=== PATIENT | male | born 1985 | race Caucasian/White ===

== ENCOUNTER 2017-07-21 18:23 | Emergency (ER) | payer OTHER ==
[2017-07-21 19:01] VITALS: BP 120/69
--- NOTE | 2017-07-21 19:06 | ER Document Report ---
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 Today he is safety glasses when he lifted shield up. Last night and every night that this occurs he gets high pain swelling to the lids and a grade the ailyn feeling. He put Visine in the next morning it is gone. He has no symptoms today at all. He wants to know if there is anything we can do for it when it happens again. 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 IN LAST 30 DAYS: No - HEENT HEENT: REMARLA. negative: Conjuctival Injection Notes: No fluorescein uptake no swelling - NECK Neck: Supple - RESPIRATORY O2 Sat by Pulse Oximetry: 100 - NEURO Level of Consciousness: Awake, Alert, Appropriate - DERM Integumentary: Warm, Dry, No Rash Course - Vital Signs Vital signs: Temp Pulse Resp BP Pulse Ox 98.4 F 54 L 16 120/69 100 07/21/17 18:50 07/21/17 18:50 07/21/17 18:50 07/21/17 18:50 07/21/17 18:50 Discharge - Discharge Clinical Impression: ultraviolet keratitis history Condition: Good Disposition: HOME, SELF-CARE Additional Instructions: wear safety goggles when you remove your eye shield at all times motrin for pain when it occurs and return to the ER cool compress also when it occurs Prescriptions: Ibuprofen [Motrin 800 mg Tablet] 800 mg PO Q8HP PRN #30 tablet PRN Reason:
[2017-07-21] MEDS ORDERED: TETRACAINE HCL 0.5% OPH SOLN 2 ML OS ONE (19:07)
== END 2017-07-21 19:40 | disposition home or self-care (01) ==
LOC: ER 18:23
DX: H16.133 Photokeratitis, bilateral (principal); F17.200 Nicotine dependence, unspecified, uncomplicated; W89.0XXA Exposure to welding light (arc), initial encounter; Y99.0 Civilian activity done for income or pay
CPT/HCPCS: 99283